=== PATIENT | female | born 1995 | race Caucasian/White ===

== ENCOUNTER 2016-06-02 08:59 | Emergency (ER) | payer SELFPAY ==
[~2016-06-02] VITALS: Ht 180.3 cm; Wt 81.8 kg
[~2016-06-02 08:59] MED LIST: HYDR-3702 PO; NF-TORA10 PO; SULF1TAB35 PO; TRM50T PO
--- OUTSIDE RECORDS SUMMARY | 2016-06-02 09:06 | XMS REPORT ---
Author Author GENERATED, SYSTEM Organization Unknown Address Unknown Phone Unavailable Care Team Providers Care Media Marketing Coordinator Name Role Phone UNASSIGNED DOCTOR MD JOHNIE DOCTOR PP [phone] Reason For Visit Chief Complaint HAND INJURY, TRIPPED GOING UP STAIRS Social History Functional Status Vital Signs Results DX Radiology from 11/01/2014 5:20 PMHAND RIGHT 3 VIEWS History: Arm pain . Technique: 3view hand Priors: None. Findings: There is no fracture. There is no dislocation. The distal radius and ulna appear intact. The carpal bones and joint spaces appear well maintained. Impression: No evidence of acute fracture or dislocation. Electronically signed by: Alejandra Gunter MD Dictated: 11/02/2014 12:54 Problems Encounter Diagnosis No relevant problems exist. Additional Problems Feeling Suicidal Comment:Problem resolved by [facility] Workflow upon Discharge, Status:Resolved. Encounters Encounter Diagnosis No relevant problems exist. Plan of Care Procedures No relevant procedures performed. Immunizations No immunizations administered or ordered. Hospital Course Hospital Discharge Instructions Allergies, Adverse Reactions, Alerts Zithromax causes unspecified.Latex Allergy has not been assessed.IV Contrast Allergy has not been assessed.No Known Food Allergies. Medication Medication reconciliation has not been performed.
[2016-06-02] MEDS ORDERED: AMOX500C5 PO (09:13)
[2016-06-02] MEDS ORDERED: HYDR-3702 PO (09:13)
[2016-06-02 09:18] VITALS: BP 133/67
== END 2016-06-02 09:15 | disposition home or self-care (01) ==
LOC: EDUNIT# 08:59 → ED 09:01
DX: K02.9 Dental caries, unspecified (principal)
CPT/HCPCS: 99282; 99283